=== PATIENT | male | born 1945 | race Caucasian/White ===

== ENCOUNTER → 2023-05-02 09:04 | Outpatient (CLI) | payer MEDICARE, MEDICAID, SELFPAY ==
--- NOTE | 2023-05-02 | DI.ECHO.S_ITS ---
[facility] +---------+ : : [address] : : : : [id number] : : : : Phone: [phone]+ Echocardiogram Report + + :Name: JOSEPH GUEVARA Study Date: 05/02/2023 Height: 72 in : :[facility] ReadingLocation: Weight: 235 lb : : Gender: Male BSA: 2.3 m2 : :: 1945 Age: 78 yrs BP: 104/64 mmHg: :Reason For Study: Other Persistent Atrial Fibrillation : :Ordering Physician: CLAUDIO, : :ALEXUS Performed By: Erin Riley : :Referring: ALEXUS WYATT : + + Interpretation Summary 1) Normal left ventricular thickness and size with low normal systolic function (EF 50-55%). 2) Moderately to severely right ventricle with normal function. 3) The right atrium is severely dilated. 4) Mild calcific mitral valve with very mild stenosis (inflow gradient 4mmHg). There is mild to moderate mitral regurgitation. 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 No aortic regurgitation is present. 6) There is moderate tricuspid regurgitation. 7) The right ventricular systolic pressure is estimated to be at least 40 mmHg based on an estimated right atrial pressure of 8 mm Hg. 8) No prior Echo available for comparison. Procedure: A two-dimensional transthoracic echocardiogram with color flow and Doppler was performed. The study quality was technically adequate. There is no prior echocardiogram noted for this patient. The patient was in atrial fibrillation with heart rates between 50-80 bpm during the exam. Left Ventricle: The left ventricle is normal in size and wall thickness. The ejection fraction is estimated to be 50-55%. There are no focal wall motion abnormalities. Diastolic function could not be accurately assessed due to atrial fibrillation. Right Ventricle: The right ventricle is moderate to severely dilated. The right ventricular systolic function is normal. Atria: The left atrium is moderately dilated. The right atrium is severely dilated. There is no Doppler evidence for an interatrial shunt. Mitral Valve: The mitral valve leaflets appear mildly thickened, but open well. The mitral valve leaflets are slightly calcified. There is mild mitral stenosis. The mitral valve mean gradient is 4 mmHg. There is mild to moderate mitral regurgitation. Aortic Valve: An [id number] aortic valve is well seated and opens well. The peak aortic velocity is 1.98 m/sec. The aortic valve mean gradient is 9 mmHg. No aortic regurgitation is present. Tricuspid Valve: The tricuspid valve is normal. There is no tricuspid stenosis. There is moderate tricuspid regurgitation. The right ventricular systolic pressure is estimated to be at least 40 mmHg based on an estimated right atrial pressure of 8 mm Hg. Pulmonic Valve: The pulmonic valve leaflets are thin and pliable; valve motion is normal. There is no pulmonic valvular stenosis. There is trace pulmonic regurgitation. Great Vessels: The aortic root is not well visualized. The ascending aorta is normal in size. The pulmonary artery is normal size. The IVC is dilated (diameter is greater than 2.1 cm) yet it collapses greater than 50% with a sniff. This suggests a right atrial pressure of 8 mm Hg. Pericardium/ Pleura There is no pericardial effusion. There is no pleural effusion. MMode/2D Measurements & Calculations LVIDd: 5.3 cm LVOT diam: 1.9 cm LVIDs: 4.4 cm asc Aorta Diam: 3.0 cm FS: 17.0 % EPSS: 0.50 cm IVSd: 0.80 cm LVPWd: 1.2 cm LV nguyễn. diameter/BSA (cm/m^2): 2.3 LV sys. diameter/BSA (cm/m^2): 1.9 LA A2 area: 29.0 cm2 RA long axis: 8.3 cm LA A4 area: 24.3 cm2 RA area: 36.2 cm2 LA length (vol): 6.5 cm RA vol: 134.1 ml LA vol: 91.5 ml RA : 58.8 ml/m2 LA vol index: 40.1 ml/m2 IVC diam: 2.1 cm RVD1 (basal): 6.1 cm LVLs ap4: 6.7 cm LVLd ap2: 8.3 cm TAPSE_phl: 2.4 cm LVLs ap2: 8.0 cm Doppler Measurements & Calculations Ao V2 max: 198.5 cm/sec LVOT Max Seth: 154.8 cm/sec Ao V2 mean: 139.0 cm/sec LV V1 max P.6 mmHg Ao max P.0 mmHg LV V1 VTI: 29.9 cm Ao mean P.8 mmHg MARIAN(I,D): 2.1 cm2 Ao V2 VTI: 40.8 cm MARIAN(V,D): 2.2 cm2 sev ratio: 0.73 MARIAN indexed to BSA (cm^2/m^2): 0.91 MVA(VTI): 2.1 cm2 TR max seth: 281.5 cm/sec TR max P.8 mmHg PA V2 max: 99.2 cm/sec PA V2 mean: 64.1 cm/sec PA mean P.0 mmHg MV V2 mean: 90.2 cm/sec SV(LVOT): 84.7 ml MV mean P.0 mmHg MV V2 VTI: 39.7 cm AV VR_phl: 0.78 MARIAN(VTI)/BSA_phl: 0.91 Reading Physician:12:38 PM
== END ==
PROVIDERS: Referring Provider Internal Medicine Cardiovascular Disease; Visit Provider Internal Medicine Cardiovascular Disease
DX: I08.1 Rheumatic disorders of both mitral and tricuspid valves (principal); I48.19 Other persistent atrial fibrillation
CPT/HCPCS: 93306

== ENCOUNTER → 2025-01-13 11:16 | Outpatient (CLI) | payer MEDICARE, MEDICAID, SELFPAY ==
[2025-01-13 11:53] LABS: Hemoglobin 13.2 g/dL (13.5-17.5); Mean Corpuscular HGB Conc 33.9 % (30-36); Mean Corpuscular Hemoglobin 32.6 PG (26-34); Mean Corpuscular Volume 96.2 fL (80-100); Platelet Count 204 X10^3/uL (150-400); Red Blood Cell Count 4.05 X10^6/uL (4.5-5.9); White Blood Cell Count 12.6 X10^3/uL (4.5-11.0)
[2025-01-13 14:44] LABS: BUN Creatinine Ratio 36.1 (6-22); Blood Urea Nitrogen 61 mg/dL (9-20); Calcium 8.8 mg/dL (8.4-10.2); Carbon Dioxide 33 mmol/L (22-32); Chloride 92 mmol/L (98-107); Estimated Glomerular Filt Rate 41 mL/min (>60); Glucose 107 mg/dL (70-99); HEMOLYSIS < 15 (0-50); Potassium 4.3 mmol/L (3.4-5.1); Sodium 133 mmol/L (137-145)
[2025-01-13 19:59] LABS: NT-proBNP (BNP-Adult 18+) 3070 pg/mL (<450)
== END ==
LOC: LAB 11:21
PROVIDERS: Referring Provider Internal Medicine Cardiovascular Disease; Visit Provider Internal Medicine Cardiovascular Disease
DX: I50.23 Acute on chronic systolic (congestive) heart failure (principal)
CPT/HCPCS: 36415; 80048; 83880; 85027

== ENCOUNTER → 2025-02-19 08:41 | Outpatient (CLI) | payer MEDICARE, MEDICAID, SELFPAY ==
[2025-02-19 09:32] LABS: Hematocrit 37.6 % (41-53); Hemoglobin 12.9 g/dL (13.5-17.5); Mean Corpuscular HGB Conc 34.2 % (30-36); Mean Corpuscular Hemoglobin 33.9 PG (26-34); Mean Corpuscular Volume 99.3 fL (80-100); Platelet Count 99 X10^3/uL (150-400); Red Blood Cell Count 3.79 X10^6/uL (4.5-5.9); Red Cell Distribution Width 18.9 % (11.6-14.8); White Blood Cell Count 6.3 X10^3/uL (4.5-11.0)
[2025-02-19 10:09] LABS: Blood Urea Nitrogen 33 mg/dL (9-20); Calcium 8.3 mg/dL (8.4-10.2); Carbon Dioxide 29 mmol/L (22-32); Chloride 101 mmol/L (98-107); Estimated Glomerular Filt Rate 35 mL/min (>60); Glucose 107 mg/dL (70-99); HEMOLYSIS < 15 (0-50); Potassium 4.7 mmol/L (3.4-5.1); Sodium 139 mmol/L (137-145)
[2025-02-19 10:18] LABS: NT-proBNP (BNP-Adult 18+) 2900 pg/mL (<450)
== END ==
PROVIDERS: Referring Provider Internal Medicine Cardiovascular Disease; Visit Provider Internal Medicine Cardiovascular Disease
DX: I42.9 Cardiomyopathy, unspecified (principal)
CPT/HCPCS: 36415; 80048; 83880; 85027

== ENCOUNTER → 2025-03-29 07:14 | Outpatient (CLI) | payer MEDICARE, MEDICAID, SELFPAY ==
[2025-03-29 08:13] LABS: Hematocrit 41.3 % (41-53); Hemoglobin 13.9 g/dL (13.5-17.5); Mean Corpuscular HGB Conc 33.6 % (30-36); Mean Corpuscular Hemoglobin 33.3 PG (26-34); Mean Corpuscular Volume 99.2 fL (80-100); Platelet Count 139 X10^3/uL (150-400)
[2025-03-29 08:33] LABS: Blood Urea Nitrogen 40 mg/dL (9-20); Calcium 9.5 mg/dL (8.4-10.2); Carbon Dioxide 27 mmol/L (22-32); Chloride 100 mmol/L (98-107); Estimated Glomerular Filt Rate 37 mL/min (>60); Glucose 96 mg/dL (70-99); HEMOLYSIS < 15 (0-50); Potassium 4.6 mmol/L (3.4-5.1); Sodium 137 mmol/L (137-145)
[2025-03-29 08:43] LABS: NT-proBNP (BNP-Adult 18+) 3520 pg/mL (<450)
== END ==
PROVIDERS: Visit Provider Internal Medicine Cardiovascular Disease
DX: I42.9 Cardiomyopathy, unspecified (principal)
CPT/HCPCS: 36415; 80048; 83880; 85027